=== PATIENT | male | born 1985 | race Hispanic/Latino ===

== ENCOUNTER 2021-03-22 18:32 | Emergency (ER) | payer OTHER ==
[2021-03-22] MEDS ORDERED: Fentanyl 100 MCG/2 ML VIAL ONE (20:20)
[2021-03-22] MEDS ORDERED: Midazolam HCl 5 mg/ml Vial ONE (20:20)
== END 2021-03-22 22:00 | disposition home or self-care (01) ==
LOC: ERS 18:32
DX: S93.04XA Dislocation of right ankle joint, initial encounter (principal); S82.831A Other fracture of upper and lower end of right fibula, initial encounter for closed fracture; W21.07XA Struck by softball, initial encounter; Y93.6A Activity, physical games generally associated with school recess, summer camp and children
CPT/HCPCS: 27840; 99152; J2250; J3010